=== PATIENT | female | born 1975 | race Two or more races ===

== ENCOUNTER 2016-09-10 10:03 | Outpatient (CLI) | payer BC ==
[2016-09-10] MEDS ORDERED: GADOVERSETAMIDE 2.5 MMOL/5 ML VIAL IJ ONE (17:57)
[2016-09-10] MEDS ORDERED: GADOVERSETAMIDE 5 MMOL/10 ML VIAL IJ ONE (17:57)
== END 2016-09-10 23:59 | disposition home or self-care (01) ==
LOC: MRI 10:03
PROVIDERS: ATTEND Family Medicine
DX: R51 Headache (principal)
CPT/HCPCS: 70542; 70553; A9579 ×2

== ENCOUNTER 2017-02-14 10:12 | Outpatient (CLI) | payer BC ==
[2017-02-14 10:54] LABS: CALCIUM, SERUM 9.2 mg/dL (8.5-10.1); CREATININE 0.8 mg/dL (0.6-1.3); POTASSIUM 3.8 mmol/L (3.5-5.1)
== END 2017-02-14 23:59 | disposition home or self-care (01) ==
LOC: LAB 10:12
PROVIDERS: ATTEND Family Medicine
DX: N83.209 Unspecified ovarian cyst, unspecified side (principal); R31.21 Asymptomatic microscopic hematuria
CPT/HCPCS: 36415; 80048-TC; 86304; 87086-TC; 87186-TC

== ENCOUNTER 2018-03-28 12:53 | Outpatient (CLI) | payer BC ==
[2018-03-28] MEDS ORDERED: GADODIAMIDE 5 MMOL/10 ML VIAL IJ ONE (12:54)
[2018-03-28] MEDS ORDERED: GADODIAMIDE 2.5 MMOL/5 ML VIAL IJ ONE (12:54)
== END 2018-03-28 23:59 | disposition home or self-care (01) ==
LOC: MRI 12:53
PROVIDERS: ATTEND Family Medicine
DX: D49.7 Neoplasm of unspecified behavior of endocrine glands and other parts of nervous system (principal); D35.2 Benign neoplasm of pituitary gland
CPT/HCPCS: 36415; 70542-TC; 70553-TC; 82565-TC; 84520-TC

== ENCOUNTER 2019-01-14 09:44 | Outpatient (CLI) | payer BC ==
[2019-01-14 11:12] LABS: CALCIUM, SERUM 8.6 mg/dL (8.5-10.1); CREATININE 0.8 mg/dL (0.6-1.3); POTASSIUM 3.6 mmol/L (3.5-5.1)
[2019-01-14] MEDS ORDERED: GADODIAMIDE 2.5 MMOL/5 ML VIAL ONE (15:00)
[2019-01-14] MEDS ORDERED: GADODIAMIDE 5 MMOL/10 ML VIAL ONE (15:00)
== END 2019-01-14 23:59 | disposition home or self-care (01) ==
LOC: MRI 09:44
PROVIDERS: ATTEND Family Medicine
DX: D35.2 Benign neoplasm of pituitary gland (principal); D49.7 Neoplasm of unspecified behavior of endocrine glands and other parts of nervous system
CPT/HCPCS: 36415; 70542; 80048; A9579 ×2

== ENCOUNTER 2020-05-27 12:29 | Outpatient (CLI) | payer BC ==
[2020-05-27] MEDS ORDERED: GADOTERATE MEGLUMINE 10 MMOL/20 ML VIAL IV ONE (15:17)
== END 2020-05-27 23:59 | disposition home or self-care (01) ==
LOC: MRI 12:29
PROVIDERS: ATTEND Family Medicine
DX: D35.2 Benign neoplasm of pituitary gland (principal)
CPT/HCPCS: 70553; A9575

== ENCOUNTER 2020-09-08 10:03 | Outpatient (CLI) | payer BC | END 2020-09-08 23:59 | disposition home or self-care (01) | LOC: RAD 10:03 | PROVIDERS: ATTEND Family Medicine | DX: R05 Cough (principal); M47.814 Spondylosis without myelopathy or radiculopathy, thoracic region | CPT/HCPCS: 71046 ==

== ENCOUNTER 2020-09-21 11:51 | Outpatient (CLI) | payer BC | END 2020-09-21 23:59 | disposition home or self-care (01) | LOC: RAD 11:51 | PROVIDERS: ATTEND Family Medicine | DX: J18.9 Pneumonia, unspecified organism (principal) | CPT/HCPCS: 71046 ==

== ENCOUNTER 2020-11-21 10:03 | Outpatient (CLI) | payer BC ==
[2020-11-21 10:46] LABS: CREATININE 0.7 mg/dL (0.6-1.3)
[2020-11-21] MEDS ORDERED: IOHEXOL-300 100 ML VIAL IV ONE (10:58)
[2020-11-21] MEDS ORDERED: IV NS 0.9% 250 ML IV ONE (10:59)
[2020-11-21] MEDS ORDERED: CT SWABBABLE VALVE TRANS SET 1 EA INFUS.SET MC ONE (10:59)
== END 2020-11-21 23:59 | disposition home or self-care (01) ==
LOC: CT 10:03
PROVIDERS: ATTEND Family Medicine
DX: D35.2 Benign neoplasm of pituitary gland (principal); R31.9 Hematuria, unspecified; N88.8 Other specified noninflammatory disorders of cervix uteri
CPT/HCPCS: 36415; 74178; 82565; 84520; J7050; Q9967

== ENCOUNTER 2020-12-06 12:46 | Outpatient (CLI) | payer BC ==
[2020-12-06] MEDS ORDERED: GADOTERATE MEGLUMINE 10 MMOL/20 ML VIAL IV ONE (12:47)
== END 2020-12-06 23:59 | disposition home or self-care (01) ==
LOC: MRI 12:46
PROVIDERS: ATTEND Family Medicine
DX: D35.2 Benign neoplasm of pituitary gland (principal); J32.8 Other chronic sinusitis
CPT/HCPCS: 70553; A9575

== ENCOUNTER 2021-10-30 12:14 | Outpatient (CLI) | payer BC | END 2021-10-30 23:59 | disposition home or self-care (01) | LOC: MRI 12:14 | PROVIDERS: ATTEND Family Medicine | DX: S56.511A Strain of other extensor muscle, fascia and tendon at forearm level, right arm, initial encounter (principal); M77.02 Medial epicondylitis, left elbow; X58.XXXA Exposure to other specified factors, initial encounter; Y93.89 Activity, other specified; Y92.89 Other specified places as the place of occurrence of the external cause; Y99.8 Other external cause status | CPT/HCPCS: 73221-TC; 73222-TC ==